=== PATIENT | female | born 1980 | race Two or more races ===

== ENCOUNTER 2024-06-02 18:54 | Emergency (ER) | payer OTHER, MEDICAID ==
[~2024-06-02] VITALS: Ht 162.6 cm; Wt 57.6 kg
[2024-06-02] MEDS ORDERED: METH-647 PO (20:30)
[2024-06-02] MEDS ORDERED: IBUP-1490 PO (20:30)
[2024-06-02 20:56] VITALS: BP 124/88; TEMP 98.2; O2SAT 99
== END 2024-06-02 20:56 | disposition home or self-care (01) ==
LOC: ER 19:03
DX: S13.4XXA Sprain of ligaments of cervical spine, initial encounter (principal); V43.52XA Car driver injured in collision with other type car in traffic accident, initial encounter; Y93.89 Activity, other specified; Y92.410 Unspecified street and highway as the place of occurrence of the external cause; Y99.8 Other external cause status
CPT/HCPCS: 70450-TC; 72125-TC